=== PATIENT | female | born 1970 | race Caucasian/White ===

== ENCOUNTER → 2020-07-01 14:05 | Outpatient (CLI) | payer BC, SELFPAY ==
--- NOTE | ~2020-07-01 | MM_ITS ---
EXAMINATION: MM screening kin BI w joselito HISTORY: Screening mammogram TECHNIQUE: Craniocaudal and mediolateral oblique 3-D tomosynthesis images were obtained and synthetic 2-D images were generated. CAD analysis was submitted and interpreted. COMPARISON: 06/09/2019, 05/20/2018, 05/14/2017 bilateral digital screening mammogram examinations BREAST PARENCHYMAL COMPOSITION: There are scattered areas of fibroglandular density. FINDINGS: There is no evidence of suspicious mass, calcification, or architectural distortion to sugg est malignancy in either breast. There has been no suspicious interval change. IMPRESSION: 1. No mammographic evidence of malignancy. 2. Recommend routine screening mammography in one year. BI-RADS Category 1: Negative Reviewed, dictated and finalized at location A. 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
== END ==
PROVIDERS: PCP Internal Medicine; Visit Provider Nurse Practitioner
DX: Z12.31 Encounter for screening mammogram for malignant neoplasm of breast (principal)
CPT/HCPCS: 77063; 77067

== ENCOUNTER → 2021-07-06 07:19 | Outpatient (CLI) | payer BC, SELFPAY ==
--- NOTE | ~2021-07-06 | MM_ITS ---
EXAMINATION: MM screening [facility] BI w joselito HISTORY: Screening TECHNIQUE: Craniocaudal and mediolateral oblique 3-D tomosynthesis images were obtained and synthetic 2-D images were generated. CAD analysis was submitted and interpreted. COMPARISON: Comparison to multiple prior studies sequentially, with oldest reviewed study dated 04/11. BREAST PARENCHYMAL COMPOSITION: Breast composed of scattered areas of fibroglandular density. FINDINGS: There is no evidence of suspicious mass, calcification, or architectural distortion to sugg est malignancy in either breast. There has been no suspicious interval change. IMPRESSION: 1. No mammographic evidence of malignancy. 2. Recommend routine screening mammography in one year. BI-RADS Category 1: Negative Reviewed, dictated and finalized at location A. 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
== END ==
PROVIDERS: PCP Internal Medicine; Visit Provider Nurse Practitioner
DX: Z12.31 Encounter for screening mammogram for malignant neoplasm of breast (principal)
CPT/HCPCS: 77063; 77067

== ENCOUNTER → 2022-06-01 09:25 | Outpatient (CLI) | payer BC, SELFPAY ==
--- NOTE | ~2022-06-01 | DEXA_ITS ---
Bone Density Report Name: ASHLEY BARNEY Age: 52 Sex: Female Ethnicity: White Date of : 1970 Indication: postmenopausal; screening for osteoporosis; height loss; Referring Provider: JENN, CHAD Study: Bone densitometry was performed. Exam Date: June 01, 2022 Accession number: [id number] Bone Density: Region BMD T-score Z-score Classification AP Spine (L1, L2) 0.941 -0.3 0.5 Normal Femoral Neck (Left) 0.814 -0.3 0.6 Normal Total Hip (Left) 0.932 -0.1 0.5 Normal Femoral Neck (Right) 0.792 -0.5 0.4 Normal Total Hip (Right) 0.937 0.0 0.5 Normal Total Hip Mean 0.935 -0.1 0.5 Normal World Health Organization criteria for BMD impression classify patients as: Normal (T-score at or above -1.0), Osteopenia (T-score between -1.0 and -2.5), or Osteoporosis (T-score at or below -2.5). 10-year Fracture Risk: FRAX not reported because: All T-scores for Spine Total, Hip Total, Femoral Neck at or above -1.0 Clinical Information Provided by Patient: Has used the following medications: Vitamin D, Calcium Patient maximum height was 68 Menopause Age: 41 Drinks caffeinated beverages Onset of menses at age 12 Number of children 2 Impression: The patient has normal bone mass. Discussion: BONE DENSITY IS ABOVE THE MINIMUM DESIRABLE LEVEL AT ALL SKELETAL SITES TESTED. This patient?s bone mineral density is above the minimum desirable level (T-score -1.0 or better) at all sites measured. The patient should follow a healthful lifestyle (good nutrition with adequate calcium and vitamin D, and appropriate weight-bearing exercise). Follow-Up: Consider repeating this study in 5 years or sooner if there is some new clinical indication. Reported by: TAVO on 06/01/2022 9:41:00 AM. Reviewed, dictated and finalized at location AJu MORAN
== END ==
PROVIDERS: PCP Internal Medicine; Visit Provider Nurse Practitioner
DX: Z13.820 Encounter for screening for osteoporosis (principal); Z78.0 Asymptomatic menopausal state
CPT/HCPCS: 77080

== ENCOUNTER → 2022-08-10 15:54 | Outpatient (CLI) | payer BC, SELFPAY ==
--- NOTE | ~2022-08-10 | MM_ITS ---
EXAMINATION: MM screening [facility] BI w joselito HISTORY: Screening TECHNIQUE: Craniocaudal and mediolateral oblique 3-D tomosynthesis images were obtained and synthetic 2-D images were generated. CAD analysis was submitted and interpreted. COMPARISON: Comparison to multiple prior studies sequentially, with oldest reviewed study dated 04/11. BREAST PARENCHYMAL COMPOSITION: There are scattered areas of fibroglandular density. FINDINGS: There is no evidence of suspicious mass, calcification, or architectural distortion to sugg est malignancy in either breast. There has been no suspicious interval change. IMPRESSION: 1. No mammographic evidence of malignancy. 2. Recommend routine screening mammography in one year. 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
== END ==
PROVIDERS: PCP Internal Medicine; Visit Provider Nurse Practitioner
DX: Z12.31 Encounter for screening mammogram for malignant neoplasm of breast (principal)
CPT/HCPCS: 77063; 77067

== ENCOUNTER → 2023-05-13 15:57 | Outpatient (CLI) | payer BC, SELFPAY ==
--- NOTE | ~2023-05-13 | MR_ITS ---
EXAMINATION: MR brain/brain stem wo con DATE: 05/13/2023 16:31 INDICATION: Acute intractable headache TECHNIQUE: Magnetic resonance imaging (MRI) of the brain and brainstem was performed without intraven ous contrast. Sequences included sagittal and axial T1-weighted SE, axial diffusion-weighted FS SE, a xial T2*-weighted GRE, axial T2-weighted FLAIR, and axial T2-weighted FSE. Apparent diffusion coeffic ient (ADC) maps were created. COMPARISON: None. FINDINGS: There are no areas of restricted diffusion to suggest acute infarction. No intracranial hemorrhage or abnormal intracranial mass lesion. There are a few scattered small foci of nonspecific increased T2- weighted signal intensity in the cerebral and pontine white matter, predominantly involving the deep and periventricular white matter which is within normal limits for age. There are no intraparenchymal signal abnormalities seen on the other pulse sequences. The ventricles are symmetric and normal in s ize. There are no abnormal extra-axial fluid collections. Flow voids are seen in the cerebral arterie s on the T2-weighted sequences consistent with their expected patency. Mild mucosal thickening the bi lateral ethmoid sinuses and small mucous retention cyst at the right maxillary sinus. Visualized orbi ts and soft tissues are unremarkable. IMPRESSION: 1. Normal aging brain with a few scattered nonspecific small foci of white matter T2 hyperintensity w hich is within normal limits for age. Reviewed, dictated and finalized at location A. IMPRESSION: 1. Normal aging brain with a few scattered nonspecific small foci of white tiago er T2 hyperintensity which is within normal limits for age.
== END ==
DX: R51.9 Headache, unspecified (principal)
CPT/HCPCS: 70551

== ENCOUNTER → 2023-06-10 08:14 | Outpatient (CLI) | payer BC, SELFPAY ==
--- NOTE | ~2023-06-10 | MMUS_ITS ---
. EXAMINATION: MM diagnostic kin BI w joselito, US axilla LT HISTORY: Palpable abnormality at left axilla TECHNIQUE: ML, MLO and CC 3-D tomosynthesis images of both breasts were performed and synthetic 2-D i mages were generated. CAD analysis was submitted and interpreted. High resolution targeted left axill giorgio ultrasound at the area of clinical complaint of palpable finding was performed. COMPARISON: 08/10/2022, 07/06/2021, 07/01/2020 bilateral screening mammogram examinations BREAST PARENCHYMAL COMPOSITION: There are scattered areas of fibroglandular density. FINDINGS: MAMMOGRAPHIC FINDINGS: No suspicious mass or architectural distortion, malignant calcification, skin thickening or retractio n or significant new or developing density is detected. Bilateral unremarkable axillary lymph nodes are noted. ULTRASOUND: Targeted ultrasound at area of clinical complaint reveals an underlying benign-appearing largely fatt y lymph node with thin cortex, measuring up to approximately 9 x 13 mm. IMPRESSION: 1. No evidence of malignancy 2. Routine mammographic screening is recommended BI-RADS Category 1: Negative Reviewed, dictated and finalized at location A. 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 No evidence of malignancy 2. Routine mammographic screening is recommended BI-RADS Category 1: Negative
== END ==
PROVIDERS: PCP Internal Medicine; Visit Provider Nurse Practitioner
DX: R59.0 Localized enlarged lymph nodes (principal)
CPT/HCPCS: 76882; 77062; 77066; G0279

== ENCOUNTER 2025-05-03 08:58 | Outpatient (CLI) | payer BC, SELFPAY ==
--- NOTE | ~2025-05-03 | DEXA_ITS ---
Bone Density Report Name: ASHLEY BARNEY Age: 54 Sex: Female Ethnicity: White Date of : 1970 Indication: postmenopausal; screening for osteoporosis; Referring Provider: JOAQUIN, AMBERLY Study: Bone densitometry was performed. Exam Date: May 03, 2025 Accession number: [id number] Bone Density: Region BMD T-score Z-score Classification AP Spine(L2, L3, L4) 0.924 -1.4 -0.3 Osteopenia Femoral Neck (Left) 0.790 -0.5 0.6 Normal Total Hip (Left) 0.936 -0.1 0.7 Normal Femoral Neck (Right) 0.806 -0.4 0.7 Normal Total Hip (Right) 0.938 0.0 0.7 Normal Total Hip Mean 0.937 -0.1 0.7 Normal World Health Organization criteria for BMD impression classify patients as: Normal (T-score at or above -1.0), Osteopenia (T-score between -1.0 and -2.5), or Osteoporosis (T-score at or below -2.5). 10-year Fracture Risk(1): Major Osteoporotic Fracture 5.4% Hip Fracture 0.2% Reported Risk Factors: [place] (), Neck BMD=0.790, BMI=31.8 (1) FRAX(R) Version 3.08. Fracture probability calculated for an untreated patient. Fracture probability may be lower if the patient has received treatment. Impression: The patient has low bone mass, based on the Total Spine T-score. The patient has an estimated ten-year risk of hip fracture of 0.2% and an estimated ten-year risk of major fracture of 5.4%, based on the WHO FRAX algorithm. Discussion: BONE DENSITY IS LOW AT ONE OR MORE SKELETAL SITES. This patient's lowest T-score is low at one or more skeletal sites. It meets the World Health Organization's (WHO) criteria for ?low bone mass? (T-score between -1.0 and -2.5). The patient's 10-year risk of fracture as calculated by FRAX is less than the threshold where pharmacological therapy is recommended by the National Osteoporosis Foundation (NOF). However, all treatment decisions require clinical judgment and consideration of individual patient factors, including patient preferences, comorbidities, previous drug use, risk factors not captured in the FRAX model (e.g., frailty, falls, vitamin D deficiency, increased bone turnover, interval significant decline in bone density) and possible under or overestimation of fracture risk by FRAX. The patient should follow a healthful lifestyle (good nutrition with adequate calcium and vitamin D, and appropriate weight-bearing exercise). Follow-Up: Consider repeating this study in 2 to 3 years to reassess this patient's status, or sooner if there is some new clinical indication. Reported by: ALEK on 05/03/2025 10:04:00 AM. Reviewed, dictated and finalized at location A.
--- NOTE | ~2025-05-03 | MM_ITS ---
EXAMINATION: MM screening kin BI w joselito HISTORY: Screening TECHNIQUE: Craniocaudal and mediolateral oblique 3-D tomosynthesis images were obtained and synthetic 2-D images were generated. CAD analysis was submitted and interpreted. COMPARISON: Comparison to multiple prior studies sequentially, with oldest reviewed study dated , 05/20/2018 BREAST PARENCHYMAL COMPOSITION: There are scattered areas of fibroglandular density. FINDINGS: There is no evidence of suspicious mass, calcification, or architectural distortion to suggest malignancy in either breast. IMPRESSION: 1. No mammographic evidence of malignancy. 2. Recommend routine screening mammography in one year. BI-RADS Category 1: Negative Reviewed, dictated and finalized at location B.
== END 2025-05-03 08:59 | disposition home or self-care (01) ==
PROVIDERS: PCP Internal Medicine; Visit Provider Nurse Practitioner Women's Health
DX: Z12.31 Encounter for screening mammogram for malignant neoplasm of breast (principal); M85.88 Other specified disorders of bone density and structure, other site; Z78.0 Asymptomatic menopausal state
CPT/HCPCS: 77063; 77067; 77080